=== PATIENT | male | born 1995 | race Caucasian/White ===

== ENCOUNTER 2017-10-20 01:27 | Emergency (ER) | payer OTHER ==
[~2017-10-20] VITALS: Ht 175.3 cm; Wt 68.9 kg
[2017-10-20 01:34] VITALS: TEMP 36.5; Ht 175.3 cm; Wt 68.9 kg
--- NOTE | 2017-10-20 01:56 | EMERGENCY ROOM VISIT NOTE ---
History Report prepared by Padma: Christiano Singer Under the Supervision of: Dr. Anastasia Sellers D.O. First contact with patient: 01:32 Chief Complaint: ALCOHOL OVERDOSE Stated Complaint: ALCOHOL Nursing Triage Summary: pt arrives via EMS pt found sitting outside [facility] unresponsive , pt currently awake and speaking History of Present Illness HPI limited due to an altered mental state secondary to alcohol intoxication. The patient is a 22 year old male who presents to the Emergency Room via EMS with complaints of a recent alcohol overdose. EMS states that the patient was found outside of [facility]. Patient states he was drinking vodka and beer tonight. Patient states he is the cousin of a [employer] student. He adds that he is from [place]. Source of History: patient History Limited By: AMS (secondary to alcohol intoxication) Review of Systems ROS limited due to an altered mental state secondary to alcohol intoxication. Past Medical & Surgical Past medical & surgical history limited due to an altered mental state secondary to alcohol intoxication. Family History Past family history limited due to an altered mental state secondary to alcohol intoxication. Social History Smoking Status: Never Smoker Occupation Status: student Social history limited due to an altered mental state secondary to alcohol intoxication. Current/Historical Medications Scheduled Alprazolam (Xanax), 0.5 MG PO DIRECTED Citalopram (Citalopram Hydrobromide), Unknown Dose PO DAILY Allergies Coded Allergies: No Known Allergies (Unverified , 10/20/17) Physical Exam Vital Signs Date Time Temp Pulse Resp B/P (MAP) Pulse Ox O2 Delivery O2 Flow Rate FiO2 10/20/17 03:17 108 18 119/82 98 10/20/17 01:40 119 10/20/17 01:34 36.5 116 18 90/67 96 Room Air Physical Exam General: Patient's speech is slightly slurred. HEENT: Head - normocephalic and atraumatic Pupils are equal, round, and reactive to light. Extraocular eye muscles are intact, and sclera are anicteric. Nose - moist nasal mucosa without discharge. Mouth - moist buccal mucosa. Oropharynx is nonerythematous and there is no tonsillar exudate or edema noted. Neck: Supple; no JVD, nuchal rigidity, cervical lymphadenopathy, or auscultated bruits. Heart: Tachycardic rate and regular rhythm. There is a normal S1 and S2 with no murmurs, clicks, or gallops appreciated. Lungs: Clear to auscultation bilaterally with no wheezes, rales, or rhonchi. Abdomen: Soft, completely nontender, nondistended, with good bowel sounds. There are no palpable pulsatile masses or hepatosplenomegaly. There is no guarding, rigidity, or rebound noted. Extremities: No evidence of cyanosis, clubbing, or edema. There are easily palpable peripheral pulses. Skin: warm and dry with good turgor and no rashes. Medical Decision & Procedures Laboratory Results 10/20/17 01:34 Test 10/20/17 01:34 Anion Gap 7.0 mmol/L (3-11) Est Creatinine Clear Calc Drug Dose 121.4 ml/min Estimated GFR () 134.6 Estimated GFR (Non- 116.1 BUN/Creatinine Ratio 10.0 (10-20) Calcium Level 8.2 mg/dl (8.5-10.1) Ethyl Alcohol mg/dL 326.0 mg/dl (0-3) Laboratory results per my review. ED Course 0135: Past medical records reviewed. The patient was evaluated in room A12A. A complete history and physical exam was performed. Laboratory studies were drawn as above. 0200: The patient was screaming in his room. He felt like no one was paying attention to him. I had a discussion with him and asked him to rest quietly and cooperate. He gave me his mother's phone number so that we could call her and she is currently staying here in town. 0315: Upon reevaluation, the patient is resting comfortably. The patient's parents picked him up. I discussed findings and results with them. He verbalized agreement of the treatment plan. He was discharged home. Medical Decision The patient is a 22 year old male who presents to the ED with a recent alcohol overdose. Differential diagnosis includes alcohol overdose, drug intoxication, hypoglycemia, and head injury. Lab results show alcohol = 326 and normal glucose and renal function. \ This is a 22-year-old male patient brought to the emergency department this morning after consuming too much alcohol. The patient denies any trauma. He has not been vomiting. I discussed the case with the patient's parents who are at the bedside. They will take him home. Medication Reconcilliation Current Medication List: was personally reviewed by me Blood Pressure Screening Patient's blood pressure: Normal blood pressure Blood pressure disposition: Did not require urgent referral Impression Primary Impression: Alcohol overdose Scribe Attestation The scribe's documentation has been prepared under my direction and personally reviewed by me in its entirety. I confirm that the note above accurately reflects all work, treatment, procedures, and medical decision making performed by me. Departure Information Dispostion Home / Self-Care Forms HOME CARE DOCUMENTATION FORM, IMPORTANT VISIT INFORMATION Patient Instructions ED Overdose Alcohol, [facility]: [employer] Students and Alcohol Related Visits, My [facility] Additional Instructions Rest. Take plenty of fluids today and a bland diet Avoid such excessive alcohol use in the future Take tylenol for headache Problem Qualifiers Primary Impression: Alcohol overdose Encounter type: initial encounter Injury intent: accidental or unintentional Qualified Codes: T51.91XA - Toxic effect of unspecified alcohol , accidental (unintentional), initial encounter
[2017-10-20] MEDS ORDERED: ALPR-411 PO (02:09)
[2017-10-20] MEDS ORDERED: CLX/20 PO (02:09)
[2017-10-20 02:24] LABS: CALCIUM 8.2 mg/dl (8.5-10.1); CREATININE 0.93 mg/dl (0.60-1.40); POTASSIUM 3.8 mmol/L (3.5-5.1)
[2017-10-20 03:17] VITALS: BP 119/82; PULSE 108; O2SAT 98
== END 2017-10-20 03:18 | disposition home or self-care (01) ==
LOC: EDBD 01:27 → C.EDA 01:29
DX: F10.929 Alcohol use, unspecified with intoxication, unspecified (principal); Y90.8 Blood alcohol level of 240 mg/100 ml or more; R00.0 Tachycardia, unspecified